=== PATIENT | female | born 1990 | race Caucasian/White ===

== ENCOUNTER 2023-10-01 16:16 | Emergency (ER) | payer OTHER ==
[~2023-10-01] VITALS: Ht 165.1 cm; Wt 70.3 kg
[~2023-10-01 16:16] MED LIST: AMOXICILLIN500 MG PO; AMOXIL500 MG PO; AUGMENTIN 875875 MG PO; BACTRIM DS 8001 TA1 PO; CATAFLAM50 MG PO; CEFADROXIL500 M1 PO; CELEXA10 MG PO; CLARITIN10 MG PO; CLEOCIN HCL150 MG PO; CLEOCIN150 MG PO; CLINDAMYCIN HC300 MG PO; CLONIDINE0.1 MG PO; DICLOFENAC POTA50 MG PO; FEOSOL300 MG PO; FERATE27 MG PO; FLEXERIL10 MG PO; HYDROCODONE BIT1 T11 PO; IRON325 M1 PO; LEXAPRO20 MG PO; MOTRIN,RUFEN800 MG PO; MOTRIN600 MG PO; NAPROSYN500 MG PO; NEURONTIN300 MG PO; NKHM; PENICILLIN VK500 MG PO; PHENERGAN25 M1 PO; PRENATAL1 TA1 PO; ROBAXIN500 MG PO; SUBOXONE 4 MG-1 EACH SL; SUBOXONE 8 MG-21 TA2 SL; Septra Ds 800 M1 TAB PO; TRAMADOL HCL50 MG PO; TYLENOL W/CODEI1 TA2 PO; ULTRAM50 MG PO; ZOFRAN4 MG PO
[2023-10-01] MEDS ORDERED: PROTONIX40 MG PO (16:30)
[2023-10-01] MEDS ORDERED: BUPRENORPHINE HY8 MG SL (16:30)
[2023-10-01] MEDS ORDERED: NEURONTIN800 MG PO (16:30)
[2023-10-01] MEDS ORDERED: LASIX40 MG PO (16:30)
[2023-10-01] MEDS ORDERED: CARAFATE1 GM PO (16:31)
[2023-10-01 16:53] LABS: BILIRUBIN Negative (Negative); BLOOD Negative (Negative); CLARITY Clear (Clear); COLOR Dark Yellow (Yellow); GLUCOSE Negative (Negative); KETONE 1+ (Negative); LEUKO ESTERASE Trace (Negative); NITRITE Negative (Negative); SPECIFIC GRAVITY >= 1.030 (1.001-1.030)
[2023-10-01 16:53] LABS: HEMATOCRIT 34.6 % (37.0-47.0); MEAN CELL VOLUME 82.2 fl (81.0-99.0); MEAN CORPUSCULAR HGB 24.9 pg (27.0-31.0); MEAN CORPUSCULAR HGB CONC 30.3 g/dl (33.0-37.0); MEAN PLATELET VOLUME 11.2 fl (9.6-12.3); PLATELET COUNT AUTOMATED 229 10*3/uL (130-400); RED BLOOD COUNT 4.21 10*6/uL (4.10-5.10); RED CELL DISTRI WIDTH 17.6 % (0-14.5); WHITE BLOOD COUNT 13.4 10*3/uL (4.8-10.8)
[2023-10-01 16:59] LABS: MANUAL DIFF REFLEX YES
[2023-10-01 17:08] LABS: BACTERIA 2+; RBC 0-2 rbc/hpf (0-2)
[2023-10-01 17:10] LABS: ALKALINE PHOSPHATASE 118 U/L (46-116); BUN 10 mg/dl (9-23); CHLORIDE 106 mmol/L (98-107); POTASSIUM 3.6 mmol/L (3.4-5.1); SGPT/ALT 21 U/L (5-49); TOTAL PROTEIN 8.4 gm/dL (6.0-8.0)
[2023-10-01 17:27] LABS: TOTAL CELLS COUNTED 100 #CELLS
[2023-10-01 17:28] LABS: PLATELET SUFFICIENCY NORMAL (NORMAL); ROULEAUX SLIGHT
== END 2023-10-01 18:08 | disposition home or self-care (01) ==
LOC: ED 16:16
PROVIDERS: Physician Assistant Medical
DX: J10.1 Influenza due to other identified influenza virus with other respiratory manifestations (principal); F41.9 Anxiety disorder, unspecified; R07.81 Pleurodynia; F32.A Depression, unspecified; Z98.890 Other specified postprocedural states; Z20.822 Contact with and (suspected) exposure to COVID-19; F17.210 Nicotine dependence, cigarettes, uncomplicated; Z79.899 Other long term (current) drug therapy

== ENCOUNTER 2024-07-22 15:38 | Emergency (ER) | payer OTHER ==
[~2024-07-22] VITALS: Ht 165.1 cm; Wt 62.3 kg
[~2024-07-22 15:38] MED LIST changes: +BUPRENORPHINE HY8 MG SL; +CARAFATE1 GM PO; +LASIX40 MG PO; +NEURONTIN800 MG PO; +PROTONIX40 MG PO
[2024-07-22] MEDS ORDERED: BENZONATATE100 M1 PO (16:14)
[2024-07-22] MEDS ORDERED: AVPAK AZITHROM250 M1 PO (16:14)
== END 2024-07-22 16:22 | disposition home or self-care (01) ==
LOC: ED 15:38
DX: O99.511 Diseases of the respiratory system complicating pregnancy, first trimester (principal); F32.A Depression, unspecified; F41.9 Anxiety disorder, unspecified; K40.90 Unilateral inguinal hernia, without obstruction or gangrene, not specified as recurrent; F17.290 Nicotine dependence, other tobacco product, uncomplicated; Z98.890 Other specified postprocedural states; Z3A.08 8 weeks gestation of pregnancy